=== PATIENT | female | born 1985 | race Caucasian/White ===

== ENCOUNTER 2018-05-15 09:28 | Emergency (ER) | payer OTHER ==
[2018-05-15] MEDS: NS 1,000 ML IV (10:35)
[2018-05-15 10:42] LABS: BASO # 0.1 10^3/uL (0.0-0.2); BASO % 0.4 % (0.0-1.0); EOS # 0.2 10^3/uL (0.0-0.50); EOS % 1.8 % (0.0-3.0); HEMATOCRIT 40.6 % (36.0-47.0); HEMOGLOBIN 13.9 g/dl (12.0-15.5); IMMATURE GRANULOCYTE % 0.6 % (0-3.0); LYMPH # 2.2 10^3/uL (1.5-4.5); LYMPH % 18.7 % (24.0-44.0); MEAN CORPUSCULAR HEMOGLOBIN 32.9 pg (27.0-33.0); MEAN CORPUSCULAR HGB CONC 34.2 g/dl (32.0-36.5); MEAN CORPUSCULAR VOLUME 96.2 fl (80.0-96.0); MONO # 0.7 10^3/uL (0.0-0.8); MONO % 5.8 % (0.0-5.0); NEUTROPHILS # 8.5 10^3/uL (1.8-7.7); NEUTROPHILS % 72.7 % (36.0-66.0); PLATELET COUNT, AUTOMATED 250 10^3/uL (150-450); RED BLOOD COUNT 4.22 10^6/uL (4.00-5.40); RED CELL DISTRIBUTION WIDTH 12.8 % (11.5-14.5); WHITE BLOOD COUNT 11.7 10^3/uL (4.0-10.0)
[2018-05-15 10:47] LABS: APPEARANCE, URINE CLEAR (CLEAR); BACTERIA, URINE AUTO 1+ (NEGATIVE); BILIRUBIN, URINE AUTO NEGATIVE (NEGATIVE); BLOOD, URINE BLOOD NEGATIVE (NEGATIVE); COLOR, URINE YELLOW (YELLOW); GLUCOSE, URINE (UA) AUTO NEGATIVE (NEGATIVE); KETONE, URINE AUTO NEGATIVE (NEGATIVE); LEUKOCYTE ESTERASE, URINE AUTO NEGATIVE (NEGATIVE); NITRITE, URINE AUTO NEGATIVE (NEGATIVE); PROTEIN, URINE AUTO NEGATIVE (NEGATIVE); RBC, URINE AUTO 2 /HPF (0-3); SQUAMOUS EPITHELIAL CELL UR AU 0 /HPF (0-6); UROBILINOGEN, URINE AUTO 0.2 mg/dL (0.0-2.0); WBC, URINE AUTO 0 /HPF (0-3)
[2018-05-15 11:08] LABS: HCG, SERUM QUANTITATIVE 195858 MIU/ML
== END 2018-05-15 11:45 | disposition home or self-care (01) ==
LOC: M ED 09:28
DX: O26.891 Other specified pregnancy related conditions, first trimester (principal); R10.2 Pelvic and perineal pain; O36.8991 Maternal care for other specified fetal problems, unspecified trimester, fetus 1; O99.341 Other mental disorders complicating pregnancy, first trimester; F42.9 Obsessive-compulsive disorder, unspecified; F41.9 Anxiety disorder, unspecified; O99.511 Diseases of the respiratory system complicating pregnancy, first trimester; J45.909 Unspecified asthma, uncomplicated; Z3A.08 8 weeks gestation of pregnancy; Z87.891 Personal history of nicotine dependence; Z88.0 Allergy status to penicillin; Z79.899 Other long term (current) drug therapy; Z87.42 Personal history of other diseases of the female genital tract
CPT/HCPCS: 76801

== ENCOUNTER 2018-08-13 20:46 | Outpatient (CLI) | payer OTHER ==
[2018-08-13] MEDS ORDERED: LOPERAMIDE ORAL SOLN 1MG/5ML UD GT (22:00)
== END 2018-08-13 22:30 | disposition home or self-care (01) ==
LOC: M LDO 20:46
DX: O26.892 Other specified pregnancy related conditions, second trimester (principal); R19.7 Diarrhea, unspecified; O99.612 Diseases of the digestive system complicating pregnancy, second trimester; K58.9 Irritable bowel syndrome, unspecified; O99.342 Other mental disorders complicating pregnancy, second trimester; F41.9 Anxiety disorder, unspecified; Z3A.22 22 weeks gestation of pregnancy
CPT/HCPCS: G0463

== ENCOUNTER 2018-11-10 08:41 | Outpatient (CLI) | payer OTHER ==
[~2018-11-10] VITALS: Ht 167.6 cm; Wt 76.6 kg
[~2018-11-10 08:41] MED LIST: PRENTAB7 PO; VENTAER INH; ZOLO25TA PO
[2018-11-10 09:06] VITALS: BP 102/65
[2018-11-10] MEDS ORDERED: TUMS500C PO (09:46)
[2018-11-10 10:52] VITALS: BP 95/62
[2018-11-10] MEDS ORDERED: BETAMETHASONE SOLUSPAN 6MG/ML INJ 5ML (J0702) IM SCH (11:00)
== END 2018-11-10 10:55 | disposition home or self-care (01) ==
LOC: M LDO 08:41
PROVIDERS: ATTEND Obstetrics & Gynecology
DX: O47.9 False labor, unspecified (principal); O99.283 Endocrine, nutritional and metabolic diseases complicating pregnancy, third trimester; E86.0 Dehydration; Z3A.34 34 weeks gestation of pregnancy
CPT/HCPCS: 59025; 96372; G0378; G0463; J0702

== ENCOUNTER 2018-11-11 11:29 | Outpatient (CLI) | payer OTHER ==
[~2018-11-11] VITALS: Ht 167.6 cm; Wt 76.8 kg
[~2018-11-11 11:29] MED LIST changes: +TUMS500C PO
[2018-11-11 11:47] VITALS: BP 114/68
--- NOTE | 2018-11-11 12:02 | IPNPDOC ---
Text Note Date of Service The patient was seen on 11/11/18. NOTE L&D TRIAGE NOTE 33 yo @ 34+4 by 8+6 wk US on [id number] presents to L&D Triage ambulatory for 2nd dose of betamethasone. She was seen for CTXs on 11/10/2017 of steroids. S: Pt is feeling well today. Denies CTXs. Resting in bed in semi-fowlers O: VS- WNL, afebrile FHR-120, moderate variability, + accels, no decels CTX- none, resting tone palpated as soft SVE-deferred A: 33 yo @ 34+4 with reactive NST. P: Discharge to home after betamethasone dose with strict return precautions. VS,Fishbone, I+O VS, Fishbone, I+O Vital Signs Date Time Temp Pulse Resp B/P (MAP) Pulse Ox O2 Delivery O2 Flow Rate FiO2 11/11/18 11:47 98.4 18 114/68 (83) TIRSO CHACKO CNM Nov 11, 2018 12:02
[2018-11-11] MEDS ORDERED: BETAMETHASONE SOLUSPAN 6MG/ML INJ 5ML (J0702) IM SCH (12:15)
== END 2018-11-11 12:35 | disposition home or self-care (01) ==
LOC: M LDO 11:29
PROVIDERS: ATTEND Midwife
DX: O09.93 Supervision of high risk pregnancy, unspecified, third trimester (principal); Z3A.34 34 weeks gestation of pregnancy; Z88.0 Allergy status to penicillin
CPT/HCPCS: 59025; 96372; G0378; G0463; J0702

== ENCOUNTER 2018-12-04 14:04 | Outpatient (CLI) | payer OTHER ==
[~2018-12-04] VITALS: Ht 167.6 cm; Wt 77.3 kg
[2018-12-04 14:24] VITALS: BP 110/71
[2018-12-04] MEDS ORDERED: LR 1,000 ML IV ONE (14:45)
[2018-12-04] MEDS ORDERED: LR 1,000 ML IV SCH (15:00)
--- NOTE | 2018-12-04 15:49 | HPE ---
DATE OF ADMISSION: 12/04/2018 This girl is a 33-year-old 3, para 2, LMP is uncertain EDC by ultrasound is 12/19/2018. She is at 37 and 6 weeks of gestation with a history of contractions about 4-6 minutes apart. No vaginal loss. No bleeding. PAST HISTORY: October 05, 2006 40 weeks spontaneous vaginal delivery female 7 pounds 14 ounces May 01, 2008 40-week spontaneous vaginal delivery 7 pounds 14 ounces female. Risk factors is she has significant depression, anxiety on multiple medications, has asthma is on medications and she is significantly dehydrated. Labs are A+, HIV negative, hep negative, RPR negative, rubella immune. Varicella immune. Pap was ascus HPV negative. Urine was negative. Gonorrhea and chlamydia negative. 1-hour glucose was 100. On examination no acute distress. Symphysis fundus height is 38, vertex OA out of the pelvis, not dilated. No vaginal loss or bleeding. Cervix is closed and posterior. Category one strip with intermittent contractions mild in intensity about 4-7 minutes apart. Temperature 98.2, blood pressure 110/71, respirations are 18, pulse 110. Urine 10/20 +1 and a half for ketones and very concentrated. She is normocephalic, atraumatic. Neck: Full range of motion. Pupils are equal and reactive to light. Distal pulses symmetric. No evidence of DVT, PE or superficial phlebitis. Chest is clear bilaterally bases. No wheezes or rhonchi. No CVA tenderness. Abdomen is appropriate. Symphysis fundus height with four quadrant bowel sounds. No rashes, lesions or tattoos or pruritus. No arthralgia, myalgia or joint pain. No complaint cough, wheeze, shortness breath or dyspnea on exertion. Not bleeding. Neuro complete. No incontinency or frequency. No nausea, vomiting, diarrhea or constipation. No diabetic issues. 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 Past medical and surgical history is noncontributory. Family history is noncontributory. Social history: She does not smoke, drink abuse drugs. She is to a soldier who is in [facility]. Her mother and her two children are her backup. Allergies: She has allergies to penicillin in which she get swelling. She is only on vitamins, Zoloft, albuterol and Flovent. In summary we have a early term gestation significantly dehydrated. Mucous membranes appear to be dry. We will hydrate with IV fluids, reduce the keytones to 0 and patient will be discharged if contractions dissipate and she was counseled regarding continued hydration.
[2018-12-04 17:26] VITALS: BP 109/64
[2018-12-04 19:13] VITALS: BP 97/59
--- NOTE | 2018-12-04 20:35 | NUR ---
2030 hours after 3 liters fluids patient ketone clear still having uterine irritability spaced out review cervix no change in station dilatation no vag loss no vag bleeding category 1 strip reviewed precautions discharged undelivered
== END 2018-12-04 20:40 | disposition home or self-care (01) ==
LOC: M LDO 14:04
PROVIDERS: ATTEND Obstetrics & Gynecology
DX: O47.03 False labor before 37 completed weeks of gestation, third trimester (principal); O99.283 Endocrine, nutritional and metabolic diseases complicating pregnancy, third trimester; E86.0 Dehydration; Z3A.37 37 weeks gestation of pregnancy
CPT/HCPCS: 59025; 96360; 96361; G0378; G0463

== ENCOUNTER 2018-12-12 14:20 | Inpatient (IN) | payer OTHER ==
[2018-12-12] VITALS (13 sets, daily range): BP systolic 109–134; BP diastolic 65–81
[~2018-12-12] VITALS: Ht 167.6 cm; Wt 78.6 kg
[2018-12-12] MEDS ORDERED: LACTATED RINGER'S 1000 ML IV STA (14:58)
--- NOTE | 2018-12-12 16:10 | HPEPDOC ---
Obstetrical History & Physical General Date of Admission Dec 12, 2018 at 14:20 History of Present Illness 33 yo at 39+0 weeks by 8+6 week US on 15May2018 presented to L&D after a gush of clear fluid after having her membranes stripped in the OBGYN clinic. She was examined after the gush of fluid and confirmed to be ruptured by MAJ Reeves. Debbie reports minor contractions but nothing severe. She denies any bleeding. She endorses movement. is uncomplicated. Chief Complaint: LOF, term Information Provided By: Patient Age: 33 : 3 Term: 2 Pre-term: 0 Abortions: 0 Livin Care Care: Good Care Dating Final EDC: Dec 19, 2018 Final EDC for Daily Update: Dec 19, 2018 Final EDC by: 1st trimester (US) (8+6 week US on 15May2018 set RIVERA of [id number]) 1st Trimester Date: May 15, 2018 Antepartum Course Diagnos(e)s Depression / anxiety ---> on zoloft Asthma --> mild controlled with flovent and albuterol Past Medical History Past Obstetrical History : Past Obstetrical History: Multigravida Type of Delivery: Spontaneous Vaginal Del. ( X2 with pelvis proven to 7lbs 14oz) CLERICAL SPECIALIST History: No pertinent history Past Medical History Medical History Asthma Depression / anxiety Surgical History: [place] teeth, Other (Ovarian cyst removal) Family History Significant Family History: No pertinent family hx Social History Marital Status: Family situation: Spouse/partner deployed Psychosocial History: Anxiety, Depression * Smoker: non-smoker Alcohol: Denies Drugs: denies Imunizations Tdap status: current Influenza Status: current Allergies Coded Allergies: Penicillins (Verified Allergy, Unknown, unknown, 08/13/18) Medications Scheduled Multivitamins/ ( Vitamins 28-0.8 mg) 1 Tab Tab, 1 TAB PO DAILY Sertraline Hcl (Zoloft) 25 Mg Tab, 2 TAB PO DAILY for DEPRESSION Physical Examination Physical Examination GENERAL: Alert and oriented times three. ABDOMEN: Gravid and non-tender to touch. FETUS: Is vertex (VTX) by sterile vaginal examination (SVE) EXTREMITIES: No edema. Grossly ruptured noted upon pelvic exam. Laboratory Data [facility] Laboratory Tests 2 12/12/18 14:37: Serology Scanned Report Hepatitis B Testing Urine Culture: No Growth Pertinent Laboratoy Data Blood Type: A+ RBC Antibody Screen: Negative HIV: Negative Hepatitis B: Negative Hepatitis C: Unknown Rapid Plasma Reagin: Nonreactive Rubella: Immune Varicella: Immune Chlamydia/Gonorrhea: Negative Group B Streptococcus: Negative Quad Screen Test: Unknown Cystic Fibrosis: Negative Glucose Tolerance Test: 100 Anatomy Ultrasound Placenta Location: Anterior Normal Anatomy: Yes Placenta Previa: No Vaginal Examination Dilation: 3 cm Effacement: 80% Station: -2 Cervical Consistency: Soft Cervical Position: Posterior Presentation: Cephalic presentation Position: Vertex (occiput) Assessment Heart Rate (FHR): 130 Variability: Moderate Accelerations: Positive Decelerations: None Tocometer Contractions: Yes Frequency: irregular Duration: less than 60 seconds Strength: palpated as mild Assessment/Plan Assessment 33 yo at 39+0 weeks presented to L&D after SROM in the office after having her membranes stripped at ~1400. Plan Admit for expectant management of labor. Will augment with pitocin if progress stalls. Apply IV fluids. Patient may have epidural if desired. GBS negative. Anticipate . Wellington Boone, DO Labor and Delivery Counseling /VAVD/FAVD counseling: Description: Deliver your baby through the vagina with possible assistance of forceps or vacuum device if needed for maternal or indications. Forceps and vacuum are devices that can assist with vaginal delivery when normal pushing efforts cannot achieve delivery on their own or when delivery is needed in an emergency for baby's well-being. Medications may be required to induce or augment (help) your labor in order to achieve a vaginal delivery. An episiotomy may be required to help your baby to delivery vaginally. You may also require repair of any lacerations or tears of your vagina or vulva that are caused by delivery. In some cases, emergencies can occur that require an emergency section delivery so quickly that there may not be enough time to stop and complete consent forms for section. Understand that if this occurs, your providers will discuss the need for a section with you before they proceed with surgery. section is the delivery of your baby through an incision in your abdomen. In some situations, section may be safer to mom and baby than continuing labor and is only performed when clinically indicated. Risks of vaginal delivery include but are not limited to: Bleeding, infection, injury to the vagina, pelvic structures, injury to baby, damage to the uterus, reactions to anesthesia, uterine rupture, risk of hysterectomy for life threatening bleeding, or . Medications used to induce or augment labor may increase your risk for infection, uterine tachysystole, uterine rupture, h eart rate abnormalities, need for emergency delivery or possible hysterectomy, and hemorrhage. Additional risks for use of forceps and vacuum include: increased risk of perineal and vaginal lacerations, risk of urinary or bowel incontinence, increased risk of injury to baby with bruising, scratches, hematomas on the head, or intracranial bleeding. Ms. Badillo verbalizes understanding of these risks and elects to proceed. She also consents to blood products for transfusion should they become necessary, All patient questions answered. DO JAZMÍN Perez CHRISTOPHER J. DO Dec 12, 2018 16:10
[2018-12-12 16:24] LABS: BASO # 0.1 10^3/uL (0.0-0.2); BASO % 0.5 % (0.0-1.0); EOS # 0.1 10^3/uL (0.0-0.50); EOS % 0.9 % (0.0-3.0); HEMATOCRIT 38.2 % (36.0-47.0); LYMPH # 1.9 10^3/uL (1.5-4.5); LYMPH % 15.2 % (24.0-44.0); MEAN CORPUSCULAR HEMOGLOBIN 32.6 pg (27.0-33.0); MEAN CORPUSCULAR VOLUME 95.7 fl (80.0-96.0); MONO # 0.8 10^3/uL (0.0-0.8); NEUTROPHILS # 9.6 10^3/uL (1.8-7.7); NEUTROPHILS % 75.5 % (36.0-66.0); PLATELET COUNT, AUTOMATED 200 10^3/uL (150-450); RED BLOOD COUNT 3.99 10^6/uL (4.00-5.40); WHITE BLOOD COUNT 12.7 10^3/uL (4.0-10.0)
--- NOTE | 2018-12-12 19:59 | IPNPDOC ---
Text Note Date of Service The patient was seen on 12/12/18. NOTE Presented to room for assessment of progress. Cervix: unchanged at 75/-2. FHR remains Cat I. Contractions irregular. Will start pitocin for augmentation. Epidural when and if patient desires. All patient questions answered. DO Paolo VS,Marianna, I+O VS, Marianna, I+O Laboratory Tests 12/12/18 16:02 Red Blood Count 3.99 L, Mean Corpuscular Volume 95.7, Mean Corpuscular Hemoglobin 32.6, Mean Corpuscular Hemoglobin Concent 34.0, Red Cell Distribution Width 12.9, Neutrophils (%) (Auto) 75.5 H, Lymphocytes (%) (Auto) 15.2 L, Monocytes (%) (Auto) 6.0 H, Eosinophils (%) (Auto) 0.9, Basophils (%) (Auto) 0.5, Neutrophils # (Auto) 9.6 H, Lymphocytes # (Auto) 1.9, Monocytes # (Auto) 0.8, Eosinophils # (Auto) 0.1, Basophils # (Auto) 0.1 Vital Signs Date Time Temp Pulse Resp B/P (MAP) Pulse Ox O2 Delivery O2 Flow Rate FiO2 12/12/18 19:14 88 119/67 (84) 12/12/18 16:38 98.1 16 STEPHANIE NOYOLA DO Dec 12, 2018 19:59
[2018-12-12] MEDS ORDERED: OXYTOCIN DRIP 30 UNITS in APPROPRIATE DILUENT 1 EA IV SCH (20:00)
[2018-12-12] MEDS: LR 1,000 ML IV SCH (20:13)
[2018-12-13] VITALS (33 sets, daily range): BP systolic 94–133; BP diastolic 55–84
[2018-12-13] MEDS ORDERED: PROMETHAZINE INJ 25 MG/ML VIAL (J2550) IV ONE (00:30)
[2018-12-13] MEDS ORDERED: NALBUPHINE HCL 10 MG/ML AMP (J2300) IV ONE (00:30)
[2018-12-13] MEDS ORDERED: CALCIUM CARBONATE 500 MG CHEW U/D PO ONE (01:45)
[2018-12-13] MEDS: LR 1,000 ML IV SCH ×3 (03:58→19:26)
--- NOTE | 2018-12-13 07:44 | IPNPDOC ---
Text Note Date of Service The patient was seen on 12/13/18. NOTE Presented to room for assessment of progress. Cervix: /-2. Forebag palpated. FHR has been Cat I. Contractions regular. pitocin at 12mU. Debbie is in pain and is requesting an epidural. Will likely AROM forebag when she is comfortable. Continue with pitocin. Safe to proceed. Stephanie Boone DO VS,Marianna, I+O VS, Marianna, I+O Laboratory Tests 12/12/18 16:02 Red Blood Count 3.99 L, Mean Corpuscular Volume 95.7, Mean Corpuscular Hemoglobin 32.6, Mean Corpuscular Hemoglobin Concent 34.0, Red Cell Distribution Width 12.9, Neutrophils (%) (Auto) 75.5 H, Lymphocytes (%) (Auto) 15.2 L, Monocytes (%) (Auto) 6.0 H, Eosinophils (%) (Auto) 0.9, Basophils (%) (Auto) 0.5, Neutrophils # (Auto) 9.6 H, Lymphocytes # (Auto) 1.9, Monocytes # (Auto) 0.8, Eosinophils # (Auto) 0.1, Basophils # (Auto) 0.1 Vital Signs Date Time Temp Pulse Resp B/P (MAP) Pulse Ox O2 Delivery O2 Flow Rate FiO2 12/13/18 07:09 98.5 77 18 112/63 (79) I&O- Last 24 Hours up to 6 AM 12/13/18 06:00 Intake Total 1000 ml Output Total 800 ml Balance 200 ml STEPHANIE BOONE DO Dec 13, 2018 07:44
[2018-12-13] MEDS ORDERED: FENTANYL 2MCG/ML ROPIVACAINE 0.2% IN 0.9% NACL 100ML IVBAG As Ordered ONE (07:46)
[2018-12-13] MEDS ORDERED: ONDANSETRON 4MG/2ML VIAL (J2405) IV PRN (09:00)
[2018-12-13] MEDS ORDERED: EPIDURAL COMMENT XX SCH (09:00)
[2018-12-13] MEDS ORDERED: ePHEDrine SULFATE 25 MG/5 ML(5MG/ML) SYRINGE IV PRN (09:00)
[2018-12-13] MEDS ORDERED: EPIDURAL/PCA KEYS XX PRN (09:00)
[2018-12-13] MEDS ORDERED: FENTANYL/ROPIVACAINE/NACL BAG 100 ML EPIDURAL SCH (09:00)
[2018-12-13] MEDS ORDERED: REFRIGERATOR IV KEYS XX PRN (09:00)
[2018-12-13] MEDS ORDERED: NALOXONE INJ 0.4 MG/1 ML VIAL (J2310) IV PRN (09:00)
[2018-12-13] MEDS ORDERED: diphenhydrAMINE INJ 50MG/ML VIAL (J1200) IV PRN (09:00)
[2018-12-13] MEDS ORDERED: LACTATED RINGER'S 1000 ML IV PRN (09:00)
[2018-12-13 09:53] LABS: CORD GAS ABE A -2.8; CORD GAS HCO3 A 26.1 MEQ/L; CORD GAS O2 SAT A 61.9 %; CORD GAS PCO2 A 63.4 mmHg; CORD GAS PH A 7.232 UNITS; CORD GAS PO2 A 29.2 mmHg; CORD GAS SBC A 21.3 MEQ/L
[2018-12-13 09:54] LABS: CORD GAS ABE V 0.4; CORD GAS HCO3 V 23.9 MEQ/L; CORD GAS O2 SAT V 90.3 %; CORD GAS PCO2 V 35.5 mmHg; CORD GAS PH V 7.446 UNITS; CORD GAS PO2 V 45.9 mmHg; CORD GAS SBC V 24.6 MEQ/L
[2018-12-13] MEDS ORDERED: DOCUSATE SODIUM 100 MG CAP PO PRN (11:15)
[2018-12-13] MEDS ORDERED: METHYLERGONOVINE MALEATE 0.2 MG TAB PO PRN (11:15)
[2018-12-13] MEDS ORDERED: ACETAMINOPHEN 500 MG TAB PO PRN (11:15)
[2018-12-13] MEDS ORDERED: MEASLES,MUMPS,RUBELLA VACCINE INJ (MMR-II) (90707) SC SCH (11:15)
[2018-12-13] MEDS ORDERED: DIBUCAINE 1% OINTMENT 30GM TOP PRN (11:15)
[2018-12-13] MEDS ORDERED: OXYTOCIN INJ 10 UNITS/ML VIAL (J2590) IV ONE (11:15)
[2018-12-13] MEDS ORDERED: ANUSOL HC CREAM 30GM TOP PRN (11:15)
[2018-12-13] MEDS ORDERED: RHOGAM 300 MCG (1500 IU) INJ (J2790) IM SCH (11:15)
[2018-12-13] MEDS ORDERED: MOM 30ML SUSPENSION UDC PO PRN (11:15)
[2018-12-13] MEDS: IBUPROFEN 800 MG TAB PO PRN (17:44)
[2018-12-13] MEDS ORDERED: SERT25TA PO (18:01)
[2018-12-14] MEDS: LR 1,000 ML IV SCH (03:26)
[2018-12-14] MEDS: IBUPROFEN 800 MG TAB PO PRN ×2 (03:38→16:33)
[2018-12-14 05:53] VITALS: BP 104/80
[2018-12-14 07:24] LABS: HEMATOCRIT 32.8 % (36.0-47.0); HEMOGLOBIN 11.3 g/dl (12.0-15.5); MEAN CORPUSCULAR HEMOGLOBIN 32.8 pg (27.0-33.0); MEAN CORPUSCULAR HGB CONC 34.5 g/dl (32.0-36.5); MEAN CORPUSCULAR VOLUME 95.3 fl (80.0-96.0); PLATELET COUNT, AUTOMATED 179 10^3/uL (150-450); RED BLOOD COUNT 3.44 10^6/uL (4.00-5.40); WHITE BLOOD COUNT 14.7 10^3/uL (4.0-10.0)
[2018-12-14] MEDS: PRENATAL VITAMINS CHEWABLE TABLET PO SCH (07:59)
[2018-12-14] MEDS ORDERED: SERTRALINE HCL 50 MG TAB PO SCH (09:00)
[2018-12-14] MEDS ORDERED: SERTRALINE HCL 50 MG TAB PO ONE (09:00)
[2018-12-14 18:24] VITALS: BP 116/76
[2018-12-15 06:00] VITALS: BP 92/55
[2018-12-15] MEDS: IBUPROFEN 800 MG TAB PO PRN (06:19)
[2018-12-15] MEDS: PRENATAL VITAMINS CHEWABLE TABLET PO SCH (09:05)
[2018-12-15] MEDS ORDERED: NUPE1OIN2 TOP (10:27)
[2018-12-15] MEDS ORDERED: MILK120011 PO (10:27)
[2018-12-15] MEDS ORDERED: COLA100C5 PO (10:27)
[2018-12-15] MEDS ORDERED: MOTR200T44 PO (10:27)
[2018-12-15] MEDS ORDERED: APAP500T10 PO (10:27)
[2018-12-15] MEDS ORDERED: ANUS2.5C2 TOP (10:27)
--- NOTE | 2018-12-15 15:27 | DN ---
DATE: 12/13/2018 This lady is a 5, para 2 admitted with query of spontaneous rupture of membranes at 39 weeks of gestation, was augmented with Pitocin, had an epidural in place, had a spontaneous rupture of membranes, delivered over for a small first-degree tear uneventfully a live female infant weighing 3250 grams, 7 pounds 3 ounces, scores of 2, 3, and 6 at 1, 5, and 10 minutes. She had a moderate polyhydramnios of 1500 mL of clear fluid. She had a uterus which did contract down under Pitocin. Had a cord around the neck once loose. Placenta of query abruption, was sent up to pathology for confirmation. The first-degree tear was oversewn in the usual fashion, sphincter was in tight, anterior, posterior, and lateral duarte were intact. Uterus is well contracted. The patient and baby tolerating procedure well. The arterial pH was 7.23, base excess is -2.8, venous pH 7.44, base excess 0.4.
--- NOTE | 2018-12-15 16:31 | IPN ---
DATE: 12/14/2018 day #1. This lady is a 33-year-old, 3, now para 3, admitted with questionable spontaneous rupture of membranes at 39 weeks of gestation. She had a spontaneous vaginal delivery of a live female weighing 7 pounds 3 ounces, scores of 2, 3, and 6, 3250 grams, cord times one around the neck. Arterial pH was 7.23, base excess -2.8, venous pH 7.44, base excess 0.4. She sustained a first-degree tear, which was oversewn in the usual fashion. She had a history of polyhydramnios, depression, anxiety. She is presently on Zoloft. On her first day, we discussed phlebitis, cystitis, mastitis, endometritis, and cellulitis, diet, exercise, pain management, perineal, breast, and wound care. Patient is undecided about control at the present time but would like to have oral contraceptives on hand just in case. The rest examination is unremarkable. She is normocephalic, atraumatic. Neck full range of motions. Pupils equal and reactive to light. Distal pulses are symmetric. No evidence of deep venous thrombosis (DVT), pulmonary embolism (PE), or superficial phlebitis. Chest is clear bilaterally to bases. No wheezes or rhonchi. No costovertebral angle (CVA) tenderness. Abdomen is soft. Uterus 2 below. Lochia is moderate. She has no rashes, lesions, or pruritus. No arthralgia, myalgia. No complaint of cough, wheeze, shortness of breath. No dyspnea on exertion. No nausea, vomiting, diarrhea, or constipation. No urgency, frequency. Nausea and vomiting are resolved. In summary, we have a term gestation, delivered a live female infant with history of polyhydramnios. Uterus is tight, and perineum is dry. ADDENDUM: This is at her day #1 checkup. The hemoglobin was 13.0, hematocrit 38.2, and platelets were 200. We are awaiting her day #1 hemoglobin. Her blood pressure was 104/80, respirations 18, pulse 77, and temperature is 96.5. Addendum dictated: ESC 12/14/2018 0639 Addendum transcribed: 12/15/2018 1711
--- NOTE | 2018-12-16 14:59 | DSES ---
DATE OF ADMISSION: 12/12/2018 DATE OF DISCHARGE: 12/15/2018 This 33-year-old, 3, now para 3, admitted at 39 weeks with spontaneous rupture of membranes, had a spontaneous vaginal delivery, female, 7 pounds 3 ounces (3250 grams), score of 2, 3, and 6 with a cord around the neck. Arterial pH 7.23, base excess -2.8, venous pH 7.44, base excess 0.4. She had a first-degree tear, which was oversewn in the usual fashion. She suffers from depression, anxiety, is on Zoloft 50 mg at bedtime. She also had polyhydramnios. On her second day, we discussed phlebitis, cystitis, mastitis, endometritis and cellulitis, diet, exercise, pain management, perineal, breast and wound care. Patient is requesting oral contraceptives for control. The rest examination unremarkable. She is normocephalic, atraumatic. Neck full range of motion. Pupils equal and reactive to light. Distal pulses symmetric. No evidence of deep venous thrombosis (DVT), pulmonary embolism (PE) or superficial phlebitis. Chest is clear bilaterally to base. No wheezes or rhonchi. No costovertebral angle (CVA) tenderness. Abdomen soft. Uterus two below. Lochia is moderate. Four quadrant bowel sounds and perineum is healing. She has no arthralgia, myalgia or joint pain. No rashes, lesions or tattoos. No pruritus. No complaints of cough, wheeze, shortness of breath or dyspnea on exertion. Not bleeding. Neuro complete. No incontinency or frequency. No nausea, vomiting, diarrhea or constipation. No diabetic issues. She does not smoke, drink, abuse drugs. She is . Good support system. No domestic violence. Her hemoglobin on admission 13.0, hematocrit 38.2 and platelets were 200. Discharge hemoglobin 11.3, hematocrit 32.8 and platelets were 179. Her vital signs, her blood pressure was 116/76, respirations 18, pulse 85, temperature 98.2. The patient has will make a 6 week checkup. All medications were given at discharge. All questions were answered.
== END 2018-12-15 13:10 | disposition home or self-care (01) | DRG 807 ==
LOC: M LDI 14:20 → M OBS 12-13 14:17
PROVIDERS: ADMIT Obstetrics & Gynecology; ATTEND Obstetrics & Gynecology
PROC: 10E0XZZ Delivery of Products of Conception, External Approach (ICD-10-PCS; principal; 2018-12-13)
PROC: 0HQ9XZZ Repair Perineum Skin, External Approach (ICD-10-PCS; 2018-12-13)
DX: O40.3XX0 Polyhydramnios, third trimester, not applicable or unspecified (principal); Z37.0 Single live birth; Z3A.39 39 weeks gestation of pregnancy; O69.82X0 Labor and delivery complicated by other cord entanglement, without compression, not applicable or unspecified; O70.0 First degree perineal laceration during delivery

== ENCOUNTER 2019-02-25 10:28 | Emergency (ER) | payer OTHER ==
[~2019-02-25] VITALS: Ht 167.6 cm; Wt 69.9 kg
[~2019-02-25 10:28] MED LIST changes: +ANUS2.5C2 TOP; +APAP500T10 PO; +COLA100C5 PO; +MILK120011 PO; +MOTR200T44 PO; +NUPE1OIN2 TOP; +SERT25TA85 PO
[2019-02-25] MEDS ORDERED: sunflower lecithin (10:38)
[2019-02-25 13:08] VITALS: BP 102/67
--- NOTE | 2019-02-25 14:02 | REP ---
ULTRASOUND SOFT TISSUES NECK: Real-time sonographic evaluation of the soft tissues neck performed near the midline anteriorly. There is an oval soft tissue mass containing a few small calcifications. There is internal blood flow with duplex Doppler evaluation. The mass measures 2.3 x 0.7 x 1.4 cm. Electronically Signed by Anant Valera MD 02/26/2019 10:52 A
--- NOTE | 2019-02-26 12:59 | ED PDOC ---
Post-Departure Follow-Up ft rory june and dr plascencia faxed formal report of thryroid us for fu Yazmin Cunningham MD Feb 26, 2019 12:59
== END 2019-02-25 13:10 | disposition home or self-care (01) ==
LOC: M ED 10:28
DX: K11.5 Sialolithiasis (principal); F33.9 Major depressive disorder, recurrent, unspecified; Z79.899 Other long term (current) drug therapy; Z87.891 Personal history of nicotine dependence; Z88.0 Allergy status to penicillin; Z88.1 Allergy status to other antibiotic agents; Z88.2 Allergy status to sulfonamides

== ENCOUNTER → 2019-03-12 | Outpatient (CLI) | payer OTHER ==
[~2019-03-12] MED LIST changes: +ISOVUE-370 76% 100ML VIAL (Q9967) As Ordered ONE; +sunflower lecithin
--- NOTE | 2019-03-12 17:07 | REP ---
Soft-tissue neck CT study with IV contrast: History: Lump in the neck. CT contrast dose: 75 ml of intravenous Isovue 370. Comparison sonography: February 25, 2019. CT findings: An opaque marker is affixed to the skin at the site of the palpable lump. This corresponds to the findings on sonography. By CT, anteriorly at the level of the thyroid cartilage just to the left of midline, there is an oval-shaped slightly low density lesion containing calcification. This measures 14 x 10 x 15 mm. There is some high attenuation linear contrast enhancement or thyroid tissue along the superior and along the medial and lateral margins of this. There is tissue in a linear fashion tracking up from the anteromedial aspect of the left thyroid lobe. The thyroid lobes are otherwise homogeneous. No adenopathy is seen. Parapharyngeal and tonsillar soft tissues are unremarkable. There are a few tonsillar crypt calcifications on the right. The parotid and submandibular glands are normal and symmetric. No vascular abnormality is seen. No bony abnormality is noted. Impression: Anterior para midline neck nodule at the level of the thyroid cartilage most compatible with a nodule in the pyramidal lobe or ectopic thyroid tissue. A neoplastic nodule cannot be excluded. Granulation tissue related to infected thyroglossal duct cyst is a possibility as well. Consider histologic sampling or excision. Electronically Signed by Anirudh Mullins MD 03/13/2019 07:59 A
== END ==
LOC: M RAD 15:54
PROVIDERS: ATTEND Specialist
DX: E04.1 Nontoxic single thyroid nodule (principal)
CPT/HCPCS: 70491; Q9967

== ENCOUNTER 2019-04-07 10:35 | Day surgery (SDC) | payer OTHER ==
[~2019-04-07] VITALS: Ht 167.6 cm; Wt 69.9 kg
[~2019-04-07 10:35] MED LIST changes: -ISOVUE-370 76% 100ML VIAL (Q9967) As Ordered ONE; +LR 1,000 ML IV SCH
[2019-04-07 11:29] LABS: URINE PREG TEST NEGATIVE (NEGATIVE)
[2019-04-07] MEDS ORDERED: IBUP200T45 PO (11:30)
[2019-04-07] MEDS ORDERED: PROPOFOL 200 MG/20 ML VIAL As Ordered ONE (11:50)
[2019-04-07] MEDS ORDERED: LIDOCAINE 2% INJ 100 MG/5 ML SDV (FOR ANES.) As Ordered ONE (11:52)
[2019-04-07] MEDS ORDERED: ROCURONIUM BROMIDE 50 MG/5 ML VIAL As Ordered ONE (11:53)
[2019-04-07] MEDS ORDERED: BACITRACIN OINT 30GM As Ordered ONE (12:25)
[2019-04-07] MEDS ORDERED: LIDOCAINE W/EPINEPHRINE 1% 20ML VIAL As Ordered ONE (12:25)
[2019-04-07] MEDS ORDERED: ACETAMINOPHEN 1000MG 100ML IV BTL (OFIRMEV) (J0131 PER 10MG) As Ordered ONE (12:50)
[2019-04-07] MEDS ORDERED: dexameTHASONE 4 MG/ML 1ML VIAL (J1100) As Ordered ONE (13:07)
[2019-04-07] MEDS ORDERED: ONDANSETRON 4MG/2ML VIAL (J2405) As Ordered ONE (13:09)
[2019-04-07] MEDS ORDERED: SUGAMMADEX SODIUM 500 MG/5 ML VIAL (BRIDION) As Ordered ONE (13:19)
[2019-04-07] MEDS ORDERED: KETOROLAC 60 MG/2 ML VIAL (J1885) As Ordered ONE (13:25)
[2019-04-07] MEDS ORDERED: PERCOCET 5MG/325MG TAB As Ordered ONE (13:53)
[2019-04-07] MEDS ORDERED: fentaNYL 100 MCG/2 ML INJECTION (J3010) IV PRN (14:00)
[2019-04-07] MEDS ORDERED: ONDANSETRON 4MG/2ML VIAL (J2405) IV PRN (14:00)
[2019-04-07] MEDS ORDERED: PERCOCET 5MG/325MG TAB PO PRN ×2 (14:00)
[2019-04-07] MEDS ORDERED: LR 1,000 ML IV SCH (14:00)
[2019-04-07 15:00] VITALS: BP 108/70
--- NOTE | 2019-04-12 08:42 | RO ---
DATE OF PROCEDURE: 04/07/2019 PREOPERATIVE DIAGNOSIS: Anterior neck mass. POSTOPERATIVE DIAGNOSIS: Anterior neck mass. PROCEDURE: Excision of anterior neck mass. SURGEON: Dr. Earnest Wild. INSPECTOR METAL FABRICATING: ANESTHESIA: General endotracheal anesthesia. INDICATION: This is a healthy 34-year-old with no prior thyroid history who presents with a painless mobile soft tissue mass in the anterior neck at the level of the thyroid cartilage. It is mobile, not fixed, and well circumscribed. It did not appear to have the characteristics of a thyroglossal duct cyst. Ultrasound and CT scanning reported to be an isolated separate entity. DESCRIPTION OF PROCEDURE: Satisfactory general endotracheal anesthesia administered. A horizontal incision was made just directly above the mass. The platysma muscle was divided and flaps were raised superiorly and inferiorly below the platysma muscle. In the midline, sharp dissection exposed the strap muscles on either side. They were retracted laterally revealing a, what appeared to be, a somewhat vascular looking mass consistent with perhaps thyroid isthmus. The mass was well-circumscribed. There were some areas of calcification adjacent to it that looked like small stones and these were removed as well. The mass was dissected free from surrounding soft tissues. There did not appear to be any type of trunk or tract leading superiorly towards the hyoid bone consistent with a thyroglossal duct cyst. This seemed to be an isolated entity. The mass was elevated off the soft tissue and finally the stalk that was connecting it to the soft tissue below was clamped, cut and ligated with #3-0 Vicryl suture. The mass was sent for frozen section. Then the wound was then closed during this time. The platysma muscles were approximated with #3-0 Vicryl suture. The skin was then closed using a Monocryl suture and Steri-Strips applied. She tolerated the procedure well and sent to the recovery room in satisfactory condition. She will be discharged on Percocet for pain. She will be seen in the office in one week to discuss the pathology report to see if anything further needs to be done.
== END 2019-04-07 15:25 | disposition home or self-care (01) ==
LOC: M SDC 10:35
PROVIDERS: ATTEND Specialist
DX: R22.1 Localized swelling, mass and lump, neck (principal); J45.909 Unspecified asthma, uncomplicated; F17.210 Nicotine dependence, cigarettes, uncomplicated; F32.9 Major depressive disorder, single episode, unspecified; Z88.0 Allergy status to penicillin; Z88.8 Allergy status to other drugs, medicaments and biological substances; Z79.899 Other long term (current) drug therapy
CPT/HCPCS: 21555; 84703; 88307; 88311; J0131; J1100; J1885; J2405

== ENCOUNTER → 2021-02-13 | Outpatient (CLI) | payer OTHER ==
[~2021-02-13] MED LIST changes: +IBUP200T45 PO; -LR 1,000 ML IV SCH
--- NOTE | 2021-02-13 11:18 | REP ---
INDICATION: ANATOMY F/U COMPARISON: None. TECHNIQUE: Transabdominal obstetrical ultrasound with color Doppler evaluation. FINDINGS: Examination demonstrates a single live intrauterine in transverse presentation. motion is identified by technologist. Placenta is noted posterior and grade 0 without evidence for placenta previa or abruption. Amniotic fluid volume is normal. Cervix measures 3.7 cm in length and appears closed.. Gestational age by LMP 23 weeks 4 days with RIVERA 06/08/2021. Gestational age by current measurements 23 weeks 2 days with RIVERA 06/10/2021. FHR equals 121 beats per minute. Estimated weight 589 grams (32ndpercentile). Anatomical assessment demonstrates normal structures including choroid plexus, facial features and facial profile. Previously documented choroid plexus cysts have resolved. IMPRESSION: Single live intrauterine in transverse lie demonstrating appropriate estimated weight. Previous choroid plexus cysts have resolved. Facial features appear normal. <Electronically signed by Mario Valera > 02/13/21 0971
== END ==
LOC: M RAD 09:51
PROVIDERS: ATTEND Obstetrics & Gynecology
DX: Z36.2 Encounter for other antenatal screening follow-up (principal); Z3A.23 23 weeks gestation of pregnancy; O32.2XX0 Maternal care for transverse and oblique lie, not applicable or unspecified